=== PATIENT | male | born 1985 | race Caucasian/White ===

== ENCOUNTER → 2020-10-15 15:04 | Outpatient (CLI) | payer OTHER, SELFPAY ==
[2020-10-15 16:38] LABS: COVID19 -Nasal RAPID Negative (Negative)
== END ==
PROVIDERS: Visit Provider Surgery
DX: Z20.822 Contact with and (suspected) exposure to COVID-19 (principal)
CPT/HCPCS: 87635; C9803

== ENCOUNTER 2020-10-16 09:20 | Day surgery (SDC) | payer OTHER, SELFPAY ==
[2020-10-10 13:09] VITALS: BMI 27.9
[2020-10-16] VITALS (9 sets, daily range): BP systolic 76–138; BP diastolic 35–80; PULSE 45–76; RESP 12–16; TEMP 36.3–36.7; O2SAT 95–100; BMI 25.4
[2020-10-16] MEDS: LACTATED RINGERS 1,000 ML 42 ML IV ×2 (10:07→11:42)
--- NOTE | 2020-10-16 10:54 | PM.HP.1 ---
History of Present Illness History of Present Illness Date Patient Seen: 10/16/20 Time Patient Seen: 10:54 Chief complaint: SDC Narrative: 35-year-old healthy male here for a elective umbilical hernia repair. Please see is H& P from August 2020 for further detail. They have been no interval changes in health. Patient History Family & Social History Family History Father Gallstones Grandmother Hypertension Social History: household members spouse,none Tobacco & Substance use: Tobacco type cigars Smoking Status Never smoker alcohol intake current alcohol intake frequency a few times a week Substance Use Type does not use Meds Home Medications and Allergies Home Medications Medication Instructions Recorded Confirmed Type No Known Home Medications 09/03/20 10/16/20 History Allergies Allergy/AdvReac Type Severity Reaction Status Date / Time No Known Drug Allergies Allergy Verified 10/16/20 09:43 Exam Vital Signs (past 8 hours): - 10/16/20 09:51 Temperature 97.6 F Pulse Rate 52 L Respiratory Rate 13 Blood Pressure 105/62 Pulse Oximetry 98 Oxygen Delivery Method Room Air Narrative Exam Narrative: GENERAL-well developed adult male, no acute distress HEENT-no scleral icterus, hearing intact NECK-no JVD, trachea midline CVS- regular rate, no peripheral edema RESP-unlabored respiratory effort, no audible wheezing GI-soft, reducible umbilical hernia MSK-no cyanosis or clubbing, extremities without deformity SKIN-warm, dry NEURO-alert and oriented, no focal deficits PYSCH-Appropriate mood and affect Assessment & Plan Assessment and plan (1) Umbilical hernia: Qualifiers: Obstruction and gangrene presence: without obstruction or gangrene Qualified Code(s): K42.9 - Umbilical hernia without obstruction or gangrene Status: Acute Assessment & Plan narrative: 35-year-old healthy male here for a elective open umbilical hernia repair, possible use of mesh. Operative risks I discussed include bleeding infection recurrence damage to surrounding structures. His questions have been answered he is in agreement with this plan.
[2020-10-16] MEDS: CEFAZOLIN 1 GM VIAL 2 GM IV (11:30)
--- NOTE | 2020-10-16 11:37 | SUR.OPER ---
Supine on padded OR bed, head on pillow, arms secured on padded arm boards at <90 degrees abduction, legs uncrossed, safety belt at thigh, tape over blanket over lower legs.
[2020-10-16] MEDS: BUPIVACAINE 0.25% (PF) VIAL 30 ML INJ (11:41)
--- NOTE | 2020-10-16 12:24 | P.OP_ITS ---
Operative Date/Time/Diagnoses Date of procedure: 10/16/20 Time of procedure: 12:24 Pre-op diagnosis: umbilical hernia Post-op diagnosis: same Procedure & Clinicians Procedure: open umbilical hernia repair without mesh Same procedure as scheduled: Yes Indications: reducible umbilical hernia Surgeon: Prashanth Whitney Click Yes if Unassisted: Yes Anesthesia Type: General Operative Notes Findings: 1 cm fascial defect containing omentum Estimated Blood Loss (mL): 20 Procedure in detail: Patient was brought to the operating room placed supine on the table. Received 2 g of Ancef prior to skin incision. Prepped and draped in sterile fashion. Time-out performed. Bilateral lower extremity compression devices applied. Infraumbilical curvilinear incision made. The umbilical stalk was dissected out circumferentially. The hernia sac was dissected off of the umbilical scan. Fascial defect examined approximately 1 cm in maximal diameter. Contained viable omentum within the hernia sac. Sac was closed with Vicryl suture reduced into the abdomen. Fascia was then cleared circumferentially of all hernia sac attachments. Given the size of the defect primary repair was performed. [id number] Ethibond suture was used to reapproximate the fascia. Hemostasis achieved. Of umbilical skin tacked to the fascia with Vicr yl skin closed with Monocryl in a running fashion followed by Dermabond and Steri-Strips. Transferred recovery room in stable condition Complications: none Post-operative Condition: stable Disposition: same day surgery
[2020-10-16] MEDS: ACETAMINOPHEN 325 MG TABLET 975 MG PO (14:21)
[2020-10-16] MEDS: OXYCODONE IR 5 MG TABLET PO (14:22)
== END 2020-10-16 14:28 | disposition home or self-care (01) ==
PROVIDERS: Referring Provider Surgery; Visit Provider Surgery
PROC: (CPT 49585; principal; 2020-10-16 10:30)
DX: K42.9 Umbilical hernia without obstruction or gangrene (principal)
CPT/HCPCS: 49585; J0690; J1100; J1885; J2250; J2405; J2704; J3010